=== PATIENT | female | born 1990 | race Caucasian/White ===

== ENCOUNTER 2018-09-20 21:59 | Emergency (ER) | payer OTHER ==
[~2018-09-20] VITALS: Ht 162.6 cm; Wt 115.7 kg
[2018-09-20 22:08] VITALS: Ht 162.6 cm; Wt 115.7 kg
[2018-09-20 23:21] VITALS: BP 139/77
== END 2018-09-20 23:21 | disposition home or self-care (01) ==
LOC: ED 21:59
DX: J45.909 Unspecified asthma, uncomplicated (principal)
CPT/HCPCS: J7512